=== PATIENT | female | born 1965 | race Two or more races ===

== ENCOUNTER 2023-04-22 23:54 | Emergency (ER) | payer OTHER ==
[~2023-04-22] VITALS: Ht 165.1 cm; Wt 79.4 kg
== END 2023-04-23 08:37 | disposition home or self-care (01) ==
LOC: ER 23:54
DX: S82.431A Displaced oblique fracture of shaft of right fibula, initial encounter for closed fracture (principal); W18.39XA Other fall on same level, initial encounter; Y93.89 Activity, other specified; Y92.413 State road as the place of occurrence of the external cause; I10 Essential (primary) hypertension; S82.61XA Displaced fracture of lateral malleolus of right fibula, initial encounter for closed fracture
CPT/HCPCS: 29515; 73590; 73600; 73620; 96372; 99284; J1885